=== PATIENT | female | born 2000 | race Caucasian/White ===

== ENCOUNTER 2023-10-06 17:51 | Emergency (ER) | payer OTHER, SELFPAY ==
[2023-10-06 18:01] VITALS: BP 109/80
[2023-10-06 18:19] LABS: % Basophils 0.4 % (0-2); % Eosinophils 2.1 % (0-6); % Immature Granulocytes 0.7 % (0-0.5); % Monocytes 8.3 % (1.7-9.3); % Neutrophils 62.5 % (42.2-75.2); Absolute Eosinophils 0.2 10^3/uL (0-0.7); Absolute Immature Granulocytes 0.1 10^3/uL (0-0.05); Absolute Lymphocytes 2.5 10^3/uL (1.2-3.4); Absolute Monocytes 0.8 10^3/uL (0.1-0.6); Hematocrit 41.7 % (37.0-47.0); Hemoglobin 14.1 g/dL (12.0-16.0); Mean Corp Hgb Conc. 33.8 g/dL (33.0-37.0); Mean Corpuscular Hgb 29.8 pg (27.0-31.0); Mean Corpuscular Volume 88.2 fL (81.0-99.0); Mean Platelet Volume 10.4 fL (7.4-10.4); Nucleated Red Blood Cells % 0 %; Platelet Count 272 10^3/uL (130-400); Red Blood Cell Count 4.73 10^6/uL (4.20-5.40); Red Cell Dist. Width 12.5 % (11.5-14.5); White Blood Cell Count 9.7 10^3/uL (4.8-10.8)
[2023-10-06 18:37] LABS: HCG, Serum Qualitative Screen Negative
[2023-10-06 18:40] LABS: ALT (SGPT) 14 U/L (0-35); AST (SGOT) 20 U/L (14-36); Albumin 4.7 g/dl (3.5-5.0); Alkaline Phosphatase 51 U/L (38-126); Blood Urea Nitrogen 10 mg/dl (7-17); Calcium 10.5 mg/dl (8.4-10.2); Carbon Dioxide 28 mmol/L (22-30); Chloride 102 mmol/L (98-107); Glucose 93 mg/dl (70-99); Potassium 4.3 mmol/L (3.5-5.1); Sodium 138 mmol/L (135-145); Total Bilirubin 0.4 mg/dl (0.2-1.3); Total Protein 7.2 g/dl (6.3-8.2); eGFR > 60.00
--- NOTE | 2023-10-06 19:27 | ED.GENMED ---
History of Present Illness
General
Chief Complaint: Dizziness
Source: patient
Exam Limitations: none
Time Seen by Provider: 10/06/23 19:14
History of Present Illness
History of Present Illness:
This is a 23 year old female that comes in with c/o syncope. States that this morning she got up to go to the [place]. States that she was urinating and she was getting more sleepy when she was sitting on the toilet. States that she woke up on the floor
and her head was under the cabinet. States that she has passed out before and believes before it was also with urination. States that she has felt dizzy and her vision is like [place] Denies any blurred or double vision. Denies any
fever, chills, chest pain, SOB, abd pain, nausea, vomiting, diarrhea, headache, urinary burning.
Past History
Past History
ED Past Medical History: Other (POTS, IBS); Negative Asthma, HTN, Hypercholesterolemia or NIDDM
ED Past Surgical History: None
Social History
Tobacco: Non-smoker
Alcohol: None
Drug: Marijuana
Personal: Single
Living: with family
Review of Systems
Review of Systems
All Other Systems: ROS reviewed and negative except as documented in HPI and ROS
Constitutional: Reports no symptoms; Denies fever or chills
EENT: Reports other (Vision is like the [place]')
Respiratory: Reports no symptoms; Denies cough or trouble breathing
Cardiac: Reports no symptoms; Denies chest pain
ABD/GI: Reports no symptoms; Denies abdominal pain, nausea, vomiting or diarrhea
: Reports no symptoms; Denies dysuria, frequency or urgency
Musculoskeletal: Reports no symptoms
Skin: Reports other (contusion left middle forehead)
Neurological: Reports other (Lightheaded); Denies dizzy or headache
Psychiatric: Reports no symptoms
Phy Exam
General Physical Exam
General Presentation: well appearing and no apparent distress
General age: appears stated age
General Skin: warm and dry
General Habitus: normal
General Mental: alert
General Hydration: appears well hydrated
ENT Exam
ENT Exam: TM's normal, pharynx normal and neck supple
Eye Exam
Eye Exam: EOMI
Cardiovascular Exam
Cardiovascular Exam: regular rate/rhythm, no edema, no murmur and normal peripheral pulses
Pulmonary Exam
Pulmonary Exam: lungs clear, no respiratory distress, no rales, chest non tender, no crackles, no rhonchi, no wheezing and no cough
Gastrointestinal Exam
Gastrointestinal Exam: normal bowel sounds, non tender, soft, no organomegaly, no pulsatile mass and non distended
Musculoskeletal Exam
Musculoskeletal Exam: full ROM and no edema
Skin Exam
Skin Exam: normal color, warm/dry, no rash and no petechia
Psychiatric Exam
Psychiatric Exam: normal mood/affect
Course
Orders/Labs/Results
Orders:
Orders
10/06/23 18:04
Electrocardiogram (*1) Urgent
Reason for Study: Vertigo / Dizzy
EKG- Treatment ONCE
Test Result ONCE
10/06/23 18:14
CMP [Comprehensive Metabolic Panel] Urgent
Complete Blood Count/With Diff Urgent
HCG, Serum Qualitative Screen Urgent
10/06/23 19:25
CT Head W/o Iv Contrast Urgent
Comment:
Reason For Exam: fall hitting forehead, dizziness
0.9% Sodium Chloride 1000 ml [Nss] 1,000 ml IV BOLUS
10/06/23 19:34
Visual Acuity- Treatment ONCE
Abnormal Lab Results
10/06/23
18:14
Abs Immat Gran (auto) 0.1 H 10^3/uL
(0-0.05)
Absolute Monos (auto) 0.8 H 10^3/uL
(0.1-0.6)
Immature Gran % 0.7 H %
(0-0.5)
Calcium 10.5 H mg/dl
(8.4-10.2)
10/06/23 18:14
10/06/23 18:14
calcium very slightly elevated. HCG negative.
Vital Signs
Initial and Last Documented VS:
Initial Vital Signs
Temp Pulse Resp BP Pulse Ox
98.2 F 82 16 109/80 98
10/06/23 18:01 10/06/23 18:01 10/06/23 18:01 10/06/23 18:01 10/06/23 18:01
Last Documented Vital Signs
Temp Pulse Resp BP Pulse Ox
98.2 F 75 10 100/69 98
10/06/23 18:01 10/06/23 21:00 10/06/23 21:00 10/06/23 21:00 10/06/23 18:01
MDM/Problems Addressed
Differential Diagnosis Includes:
Dehydration, Micturition syncope
MDM/Problems Addressed:
This is a 23 year old female that comes in with c/o syncope. States that she went to the [place] this morning and she awoke on the floor. States that her head was under the cabinet and that she has been lightheaded. States that her vision is like [place]
Will check labs, CT head and given IV fluids.
back into see patient and dad. Explained that her CT of the head is normal along with her Blood work. patient states that she is feeling better atfter the Fluids. Explained that this could be Micturition syncope. Patient to follow up with the family
doctor. Return with any concerns
Chronic conditions affecting care:
POTS
Acute Exacerbation and/or Progression of Chronic Illness:
POTS
*Radiology
Radiology exam reviewed: radiology read reviewed (CT head-No acute intracranial abnormality noted. )
*Pulse Oximetry
Patient hypoxic: no
*EKG
Interpreted by ED Provider?: Yes
Heart Rate: 67
Rate: normal
Rhythm: sinus arrhythmia
[place]: normal axis
Interval: normal interval
QRS Pattern: normal QRS
Ischemia: no ischemia
*Classified Advertising Supervisor Interpretation
Rate: normal
Heart Rate: 76
Rhythm: sinus
*Critical Care Note
Total Time (30-74mins, 75-104mins- exclusive of procedures): Not Applicable
ED Attending Note
-
Portions of this chart may have been created with voice recognition software.� Occasional wrong word or��sound alike� substitutions may have occurred due to the inherent limitations of voice recognition software.
Discharge Plan
Departure
Patient Disposition: Home (Routine Discharge)
Date of Disposition: 10/06/23
Time of Disposition: 22:25
Patient with high blood pressure during this ER visit?: No
Condition: Good
Covid-19: Not Applicable
Discharge Problem:
Micturition syncope, Contusion of head
Instructions: Syncope (Fainting) (DC), Minor Head Injury, Adult ED
Referrals:
NONE,* [Family Provider] -
Activity Restrictions/Additional Instructions:
As discussed, your blood work is normal along with the CT of the head. Please increase your water intake to 8-8oz glasses daily. You can use Tylenol or Ibuprofen for any headache pain. Follow up with the family doctor for recheck. IF YOU HAVE ANY
OTHER CONCERNS PLEASE RETURN TO THE EMERGENCY ROOM.
Interventions
Interventions:
*Risk Screen - Suicide Last Done: 10/06/23 19:45
*General Assessment Last Done: 10/06/23 18:01
*Neglect/Abuse Screening Last Done: 10/06/23 19:45
ED- Neurological Assessment Last Done: 10/06/23 19:45
Discharge Date and Time
Print Language: [id number]
[2023-10-06 19:35] VITALS: BP 104/75
[2023-10-06] MEDS: NSS 1000 IV (19:50)
[2023-10-06 20:00] VITALS: BP 103/74
[2023-10-06 21:00] VITALS: BP 100/69
== END 2023-10-06 22:42 | disposition home or self-care (01) ==
LOC: EMR 17:51
PROVIDERS: Emergency Medicine; EMERGENCY PHYSICIAN Emergency Medicine
DX: R55 Syncope and collapse (principal); S00.93XA Contusion of unspecified part of head, initial encounter; W19.XXXA Unspecified fall, initial encounter; R39.198 Other difficulties with micturition; G90.A Postural orthostatic tachycardia syndrome [POTS]
CPT/HCPCS: 99285; 96360; 70450; 80053; 84703; 85025; 93005